=== PATIENT | male | born 1970 | race Caucasian/White ===

== ENCOUNTER 2017-09-01 18:02 | Emergency (ER) | payer MEDICAID, OTHER ==
[2017-09-01] MEDS: DIAZEPAM 5 MG TAB PO (22:17)
[2017-09-01] MEDS: KETOROLAC 60 MG INJ IM (22:17)
[2017-09-01] MEDS: ONDANSETRON (ODT) 4 MG TAB ODT (22:17)
[2017-09-01] MEDS: HYDROCODONE/APAP (5/325) TAB PO (22:17)
[2017-09-01 22:31] LABS: ADD UMIC NO; UR ASCORBIC ACID NEGATIVE (NEGATIVE); UR BILIRUBIN (Dip) NEGATIVE (NEGATIVE); UR BLOOD (Dip) NEGATIVE (NEGATIVE); UR CLARITY CLEAR (CLEAR); UR COLOR YELLOW (YELLOW); UR GLUCOSE (Dip) NEGATIVE (NEGATIVE); UR KETONES (Dip) NEGATIVE (NEGATIVE); UR LEUKOCYTE ESTERASE (Dip) NEGATIVE Leu/ul (NEGATIVE); UR NITRITE (Dip) NEGATIVE (NEGATIVE); UR TOTAL PROTEIN (Dip) NEGATIVE (NEGATIVE); UR UROBILINOGEN (Dip) NEGATIVE (NEGATIVE)
== END 2017-09-02 00:22 | disposition home or self-care (01) ==
LOC: FTE 09-02 00:22
DX: S39.012A Strain of muscle, fascia and tendon of lower back, initial encounter (principal); I10 Essential (primary) hypertension; X58.XXXA Exposure to other specified factors, initial encounter; Y92.9 Unspecified place or not applicable
CPT/HCPCS: 74176; 81003; 96372; 99285-25